=== PATIENT | male | born 1970 | race Caucasian/White ===

== ENCOUNTER 2024-11-04 11:56 | Emergency (ER) | payer OTHER, SELFPAY ==
--- NOTE | ~2024-11-04 | CT_ITS ---
CLINICAL HISTORY: left flank pain, constipation CT abdomen and pelvis with contrast Comparison: CT - CT ABDOMEN PELVIS W IV CON - 11/04/24 17:19 EDT Findings: No consolidation or effusion. The liver, gallbladder, spleen, adrenal glands, pancreas, kidneys, ureters and bladder normal No urinary calculus or obstructive uropathy. Mild thickening of the sigmoid colon. No significant surrounding stranding. No obstruction, free air, free fluid, abscess or significant adenopathy. A few subcentimeter lymph nodes are present within the retroperitoneum. Normal appendix. Moderate atherosclerotic disease. No acute osseous finding. Impression: There is mild thickening of the sigmoid colon. Segmental colitis possible. This segment of bowel is relatively decompressed and this appearance may be somewhat artifactual. There is no significant surrounding stranding. No free air, abscess or adenopathy. Otherwise no acute findings. This document has been electronically signed by: Manjinder Le MD on 11/04/2024 18:06:04
[2024-11-04 12:06] VITALS: BP 141/86; PULSE 76; RESP 16; TEMP 36.9; O2SAT 95; BMI 29.5
--- NOTE | 2024-11-04 12:06 | ED.BACK ---
HPI - Back Pain/Injury General Chief Complaint: Back Pain/Injury Stated Complaint: Low Back Pain Unable to go to Bathroom Time Seen by Provider: 11/04/24 14:43 Source: patient and RN notes reviewed Mode of arrival: ambulatory Limitations: no limitations History of Present Illness ED Provider: Rekha Garg PA-C HPI Narrative: This is a 54-year-old male, with a past medical history of GERD, and chronic back pain, who presents emergency department with complaints of left low back pain extending into the left flank and left abdomen. Patient reports that he has had the symptoms for about a week. He states that previously he was having some low back pain. This has since progressed and now has had burning like sensation in his low back extending into his left flank and left lower abdomen, realizing that the pain is worse after eating. He reports that he did have some constipation, called his primary care physician who advised him to take Colace, he took this however states he has not had a normal bowel movement over the last several days. He denies any fevers, chills, chest pain, shortness of breath, current abdominal pain, nausea, vomiting or diarrhea. No bloody or black stool. Denies history of similar symptoms in the past. No urinary symptoms. Denies history of any abdominal surgeries. No other complaints or concerns at this time. Exacerbating factors: none Relieving factors: none Associated symptoms: denies other symptoms Related Data Allergies Allergy/AdvReac Type Severity Reaction Status Date / Time No Known Allergies Allergy Verified 11/04/24 12:08 Review of Systems Review of Systems: Yes all other systems are reviewed and are negative Constitutional: Constitutional: Reports as per [facility] Social History Social History Advance Directives: No Advance Directives Information Provided: No Do you have a plan to hurt others: No Plan Physical Exam Vital Signs: Vital Signs: Last Vital Signs Temp 97.9 F 11/04/24 21: Pulse 64 11/04/24 21:26 Resp 18 11/04/24 21:26 BP 155/92 H 11/04/24 21:26 Pulse Ox 96 11/04/24 21:26 O2 Del Method Room Air 11/04/24 21:26 BMI result Body Mass Index 29.5 Const: General: cooperative, comfortable and no acute distress Orientation/consciousness: patient oriented x3 Limitations: no limitations HEENT: Head: Yes normal to inspection, Yes normocephalic and Yes atraumatic Ears: hearing grossly normal bilaterally General nose exam: Normal external nose present Face and sinus: Yes normal facial exam Mouth: Normal oral and palatal mucosa present, oropharynx normal and moist mucous membranes Throat: Yes posterior oropharynx normal Eyes: General: appearance normal, both eyes and all related structures Eyelids: Yes eyelids normal Conjunctivae: conjunctivae normal Sclerae: sclerae normal Pupils: Equal, round and reactive pupils present EOM: EOMs intact bilaterally Neck: Neck: Yes normal visual inspection, Yes full ROM and Yes no lymphadenopathy Lymphatic: no lymphadenopathy noted Chest: Chest palpation & inspection: normal inspection of the chest Resp: Effort & Inspection: normal respiratory effort and able to speak in complete sentences Auscultation: clear to auscultation bilaterally, no crackles, no rales, no rhonchi and no wheezes Cardio: Rate: regular rate Rhythm: regular rhythm Heart sounds: S1 normal heart sound present and S2 normal heart sound present GI: Other: Abdomen is soft, nontender, nondistended, slight tenderness palpation in the left lower quadrant, extending into the left flank. No overlying skin changes, no rashes Inspection: Yes normal to inspection : Other: No CVA tenderness Skin: General skin exam: no rashes or lesions noted Trauma: no lacerations or abrasions Wounds: no wounds Neuro: General: patient oriented x3 and moves all extremities Cranial nerves: Yes Equal, round and reactive pupils present Extrem: General: Yes normal to inspection Right upper extremity: normal to inspection Left upper extremity: normal to inspection Right lower extremity: normal to inspection Left lower extremity: normal to inspection Course Course Course Narrative: This is an RME performed by Avtar Prasad CNP: Additional HPI, ROS, PE not included below will be deferred to primary provider. presents for evaluation of pain to the left lower back radiating into the abdomen with onset 10/29/2024. Admits that over the past month he has been having Diarrhea described as soft stools without hematochezia or melena. the pain typically comes on about an hour after eating. Contacted PCP 10/31/2024, advised taking Colace which she has done over the past few days without any change. denies symptoms. Plan: Serum labs, urinalysis Reevaluation(s) Reevaluation #1: 10:35 PM 11/04/2024 (Tess CORNELIUS): The patient was signed out to this provider at shift change. In summary the patient is a 54-year-old male presenting to the ED for evaluation of left low back and left lower quadrant abdominal pain which has been occurring approximately 15-20 minutes postprandially for the past few days. The patient reports he was constipated starting on and began taking Colace. Patient reports he did move his bowels over the weekend, reports soft stools but denies associated hematochezia or melena. The patient denies associated fever/chills, nausea, vomiting, chest pain, shortness of breath, recent sick contacts, or recent trauma. The patient does report he also was experiencing increased sinus congestion over the past 2 weeks. The patient's laboratory evaluation and urinalysis were reassuring, patient was signed out pending results of CT abdomen and pelvis. The patient's CT abdomen and pelvis has resulted and shows mild thickening of the sigmoid colon consistent with colitis, but without evidence of diverticulitis, or associated perforation or abscess. Given this finding on CT but in the setting of no fever or leukocytosis, patient may be suffering from viral colitis. The patient's repeat abdominal exam at this time shows no tenderness. Patient reports he feels at baseline. The patient will be p.o. challenged and discharged home with outpatient follow-up. Medications Administered Discontinued Medications Generic Name Dose Route Start Last Admin Trade Name Freq PRN Reason Stop Dose Admin Diatrizoate Meglum/Diatrizoate Sod 30 ml 11/04/24 17:26 11/04/24 17:27 Diatrizoate Meglumine, Sodium 30 Ml Solution PO 11/04/24 17:27 30 ml ONCE ONE Administration Sodium Chloride 1,000 mls @ 999 mls/hr 11/04/24 15:18 11/04/24 17:00 Ns IV 11/04/24 16:18 Infused .Q1H1M ONE Infusion Iohexol 100 ml 11/04/24 17:26 11/04/24 17:26 Iohexol 350 Mg/Ml 100 Ml Infus..Btl IV 11/04/24 17:27 85 ml ONCE ONE Administration Medical Decision Making Medical Decision Making MDM Narrative: This is a 54-year-old male who presents for evaluation of pain to the left lower back radiating into the abdomen with onset for the last week. He states that previously he was having some back pain. He states that this since has progressed to left flank pain, radiating into his left lower abdomen, typically occurring after he eats. This resolves after an hour. Denies history of similar symptoms in the past. He has been taking Colace as he has not had a bowel movement since . He is still passing gas. On arrival, patient is well-appearing, vital signs reveal slightly hypertensive at 141/86, all other vital signs within normal limits. Abdomen is soft with mild tenderness palpation in the left flank and left lower quadrant. No rebound or guarding. Normoactive bowel sounds present. Differential diagnoses include acute gastritis, gastroenteritis, SBO, diverticulitis. Patient states that he is feeling well, no active discomfort, offered pain medication, which he declines. Plan: Labs, CT abdomen and pelvis Course: Labs revealed no leukocytosis, stable H&H, chemistry reveal creatinine of 1.03, BUN slightly elevated at 24, no previous. He was medicated with IV fluids. CT abdomen and pelvis pending, sign out given to my colleague, Aldo Helton PA-C pending CT. Differential Diagnosis Differential Diagnoses: The differential diagnosis associated with the presentation includes See above Admission/Observation Consideration of admission/observation: Escalation of care including admission/observation considered Lab Data [facility] Lab Attestation statement: I reviewed the patient's lab results. See [facility] and course 11/04/24 13:57 11/04/24 13:57 Labs: Lab Results 11/04/24 11/04/24 Range/Units 13:57 15:56 WBC 6.2 (4.8-10.8) X10*3/uL RBC 5.43 (4.60-5.80) X10*6/uL Hgb 15.6 (14.0-18.0) g/dl Hct 46.7 (42.0-52.0) % MCV 86.0 (80.0-98.0) fL MCH 28.7 (27.0-33.0) pg MCHC 33.4 (31.0-36.0) g/dl RDW 13.1 (11.0-16.0) % Plt Count 231 (160-400) X10*3/uL MPV 9.5 (9.4-12.4) fL Immature Gran % (Auto) 0.5 H (0.0-0.4) % Neut % (Auto) 49.6 (45-73) % Lymph % (Auto) 30.4 (20-40) % [place] % (Auto) 11.8 H (2-11) % Eos % (Auto) 6.4 H (0-4) % Baso % (Auto) 1.3 (0-2) % Lymph # (Auto) 1.9 (1.2-4.9) X10*3/uL [place] # (Auto) 0.7 (0.1-1.2) X10*3/uL Eos # (Auto) 0.4 (0.0-0.4) X10*3/uL Baso # (Auto) 0.1 (0.0-0.2) X10*3/uL Abs Immat Gran (auto) 0.03 (0.00-0.03) X10*3/uL Absolute Neuts (auto) 3.1 (2.0-8.3) x10*3/uL Absolute Nucleated RBC 0.000 (0.0-0.012) X10*3/uL Nucleated RBC % (auto) 0.0 (0.0-0.2) /100WBC Sodium 141 (135-145) mmol/L Potassium 4.8 (3.3-5.1) mmol/L Chloride 107 (96-108) mmol/L Carbon Dioxide 30 H (22-29) mmol/L Anion Gap 9 L (12-20) BUN 24 H (9-16) mg/dL Creatinine 1.03 (0.5-1.4) mg/dL Estim Creat Clear Calc 104.3 Estimated GFR > 60 Random Glucose 88 (60-115) mg/dL Calcium 9.2 (8.4-10.2) mg/dL Total Bilirubin 0.4 (0.0-1.0) mg/dL AST 19 (5-37) U/L ALT 25 (0-40) U/L Alkaline Phosphatase 75 (39-117) U/L Troponin I High Sens < 2.7 (<3.5-35.0) ng/L Total Protein 6.9 (6.5-8.0) g/dL Albumin 4.5 (3.5-5.0) g/dL Lipase 55 (8-78) U/L Urine Color Yellow Urine Appearance Clear Urine pH 6.0 (5.0-9.0) Ur Specific [place] 1.025 (1.005-1.025) Urine Protein Negative (Neg-Trace) mg/dL Urine Glucose (UA) Negative (Negative) mg/dL Urine Ketones Trace (Negative) mg/dL Urine Blood Negative (Negative) Urine Nitrite Negative (Negative) Ur Leukocyte Esterase Negative (Negative) Discharge Plan Discharge Clinical Impression: Gastroenteritis and colitis, viral Patient Disposition: Home, Self-Care Instructions: Colitis (ED), Gastroenteritis (ED) Additional Instructions: Thank you for choosing [facility]'s Emergency Department for your care today. Thankfully your laboratory evaluation, urinalysis, and CT today showed no evidence of any acute surgical or other emergent cause for your symptoms. At this time there is no indication for admission to the hospital or continued ED observation, and it is safe to discharge you home. Your CT does show evidence of some mild thickening of your sigmoid colon, a condition known as colitis. Thankfully your laboratory evaluation shows no evidence of a bacterial infection requiring antibiotics. Your symptoms should improve in the next 1-2 weeks. Please adhere to a bland diet including foods like bread, rice, applesauce, and toast until your symptoms improve. You may take alternating (staggered) doses of ibuprofen 600mg and Tylenol 1000mg every 4 hours as needed for any additional pain. Please stay well hydrated and get plenty of rest. Please follow up with your primary care physician for re-evaluation, additional management of your symptoms, and continued preventative care. If you do not have a primary care physician, please call the [facility] at [phone] to establish a new primary care physician. While waiting to establish your new primary care physician, you can call our [facility] at [phone] for non-emergency needs. Please return to the emergency department if you develop a severe or sudden change in your symptoms, a fever over 100.4 that does not improve with Tylenol or Ibuprofen, severe and recurrent vomiting, blood in your stool, or any other new or worsening symptoms or concerns. Referrals: Nomi Bravo III, MD [Primary Care Provider, Medical] Clinical Impression: Gastroenteritis and colitis, viral Print Language: Indonesian
[2024-11-04 14:01] LABS: MANUAL DIFF FLAG NO
[2024-11-04 14:03] LABS: Hematocrit 46.7 % (42.0-52.0); Hemoglobin 15.6 g/dl (14.0-18.0); Imm Gran Abs Auto 0.03 X10*3/uL (0.00-0.03); Imm Gran Pct Auto 0.5 % (0.0-0.4); Lymphocytes Absolute Auto 1.9 X10*3/uL (1.2-4.9); Mean Corpuscular HGB Conc 33.4 g/dl (31.0-36.0); Mean Corpuscular Hemoglobin 28.7 pg (27.0-33.0); Mean Corpuscular Volume 86.0 fL (80.0-98.0); NRBC Abs Auto 0.000 X10*3/uL (0.0-0.012); NRBC Pct Auto 0.0 /100WBC (0.0-0.2); Platelet Count 231 X10*3/uL (160-400); Red Blood Count 5.43 X10*6/uL (4.60-5.80); White Blood Count 6.2 X10*3/uL (4.8-10.8)
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
[2024-11-04 14:22] LABS: Alanine Aminotransferase 25 U/L (0-40); Albumin Level 4.5 g/dL (3.5-5.0); Alkaline Phosphatase 75 U/L (39-117); Anion Gap 9 (12-20); Aspartate Amino Transferase 19 U/L (5-37); Blood Urea Nitrogen 24 mg/dL (9-16); Calcium 9.2 mg/dL (8.4-10.2); Carbon Dioxide 30 mmol/L (22-29); Chloride 107 mmol/L (96-108); Creatinine Clr Calc Pharmacy 104.3; Estimated Glomerular Filt Rate > 60; Lipase 55 U/L (8-78); Potassium 4.8 mmol/L (3.3-5.1); Sodium 141 mmol/L (135-145); Total Protein 6.9 g/dL (6.5-8.0)
[2024-11-04 15:51] LABS: Troponin-I High Sensitivity < 2.7 ng/L (<3.5-35.0)
[2024-11-04 15:58] VITALS: BP 141/86; PULSE 50; RESP 14; TEMP 36.5; O2SAT 98
[2024-11-04 16:08] LABS: Appearance Urine Clear; Glucose Urine UA Negative (Negative); PH 6.0 (5.0-9.0); Specific Gravity - Urine 1.025 (1.005-1.025)
[2024-11-04] MEDS: iohexoL 350 MG/ML 100 ML INFUS..BTL IV (17:26)
[2024-11-04 17:57] VITALS: BP 121/68; PULSE 55; RESP 14; TEMP 36.8; O2SAT 95
[2024-11-04 21:26] VITALS: BP 155/92; PULSE 64; RESP 18; TEMP 36.6; O2SAT 96
--- NOTE | 2024-11-04 22:42 | MHC.EDTECH ---
crackers and water given to patient as instructed by er ladi wallace for po trail. patient accepted
[2024-11-04 22:48] VITALS: BP 147/98; PULSE 66; RESP 18; TEMP 36.6; O2SAT 95
[2024-11-04 22:51] VITALS: BP 147/98; PULSE 66; RESP 18; TEMP 36.6; O2SAT 95
== END 2024-11-04 22:55 | disposition home or self-care (01) ==
PROVIDERS: Nurse Practitioner Family; Physician Assistant Medical; Emergency Provider Emergency Medicine Emergency Medical Services; PCP Internal Medicine
DX: A08.4 Viral intestinal infection, unspecified (principal); K52.9 Noninfective gastroenteritis and colitis, unspecified; R10.2 Pelvic and perineal pain; R11.2 Nausea with vomiting, unspecified; Z79.899 Other long term (current) drug therapy
CPT/HCPCS: 36415; 74177; 80053; 81003; 83690; 84484; 85025; 96360; 99284; 99285; Q9967

== ENCOUNTER → 2024-11-04 15:18 | Outpatient (BNV) | payer OTHER, SELFPAY | PROVIDERS: Emergency Provider Emergency Medicine Emergency Medical Services; PCP Internal Medicine; Visit Provider Radiology Vascular & Interventional Radiology | DX: R10.9 Unspecified abdominal pain (principal) | CPT/HCPCS: 74177 ==